=== PATIENT | female | born 1965 | race Caucasian/White ===

== ENCOUNTER 2019-01-06 23:58 | Emergency (ER) | payer MEDICAID ==
[~2019-01-06] VITALS: Ht 152.4 cm; Wt 59.4 kg
[~2019-01-06 23:58] MED LIST: IBUP-1542 PO
[2019-01-07 00:05] VITALS: Ht 152.4 cm; Wt 59.4 kg
[2019-01-07 02:43] VITALS: BP 159/90; PULSE 69; RESP 16
== END 2019-01-07 02:49 | disposition home or self-care (01) ==
LOC: FTE 23:58
DX: S69.91XA Unspecified injury of right wrist, hand and finger(s), initial encounter (principal); Y04.0XXA Assault by unarmed brawl or fight, initial encounter
CPT/HCPCS: 29125; 73110; Z7610